=== PATIENT | male | born 1945 | race Caucasian/White ===

== ENCOUNTER 2024-12-03 12:58 | Emergency (ER) | payer OTHER, MEDICARE, MEDICAID ==
[~2024-12-03] VITALS: Ht 177.8 cm; Wt 68.9 kg
[2024-12-03] MEDS ORDERED: ASPIRIN81 MG PO (13:11)
[2024-12-03] MEDS ORDERED: ELIQUIS5 MG PO (13:12)
[2024-12-03 14:13] VITALS: BP 140/81
--- OUTSIDE RECORDS SUMMARY | 2024-12-03 14:22 | XMS ---
PreManage Notification: AYDEN HANKINS Security [place] [employer] Events No recent Security Events currently on file CRITERIA MET - 6 ED Visits in 6 Months - [facility] - 2 Visits in 30 Days CARE PROVIDERS Sirena Maritnez Community Health Worker 12/27/2022-Current PHONE: [phone] Leonides Samson Nurse Practitioner: Family Current PHONE: Unknown Dorothea has no Care Guidelines for this patient. Liza VISIT COUNT (12 MO.) [address] [place] [address] TOTAL 12 NOTE: Visits indicate total known visits. ED/UCC VISIT TRACKING (12 MO.) 12/03/2024 12:58 [facility] [place] TYPE: Emergency COMPLAINT: - ALTERED LOC 12/02/2024 23:27 [facility] [place] TYPE: Emergency DIAGNOSES: - Homelessness unspecified - Malingerer [conscious simulation] - Patient's other noncompliance with medication regimen for other reason - ABD PAIN 12/01/2024 21:03 [facility] [place] TYPE: Emergency DIAGNOSES: - Cellulitis of right finger - Homelessness unspecified - Patient's other noncompliance with medication regimen for other reason - KIDNEY PAIN 11[facility]30[facility]2024 17:[email or web address] DIAGNOSES: - Homelessness unspecified - Kidney transplant status - Neuralgia and neuritis, unspecified - Other chronic pain - Patient's other noncompliance with medication regimen for other reason - FOOT PROBLEM 11/27/2024 16:29 [facility] [place] TYPE: Emergency DIAGNOSES: - Kidney transplant status - Other stimulant abuse, uncomplicated - Patient's other noncompliance with medication regimen for other reason - BACK PAIN 11/23/2024 07:26 [facility] [place] TYPE: Emergency DIAGNOSES: - Encounter for other specified aftercare - HAND LACERATION 11/22/2024 16:45 [facility] [place] TYPE: Emergency DIAGNOSES: - Abrasion of unspecified finger, initial encounter - Nausea with vomiting, unspecified - Pain in left foot - Pain in right foot - hand pain 11/19/2024 07:32 [facility] [place] TYPE: Emergency DIAGNOSES: - Cellulitis of left finger - Cellulitis of unspecified part of limb - Cutaneous abscess of left hand - WOUND CHECK 11/18/2024 09:41 [facility] [place] TYPE: Emergency DIAGNOSES: - Cellulitis of right finger - Laceration without foreign body of lip, initial encounter - Unspecified injury of face, initial encounter - WOUND INFECTION 10/02/2024 13:27 [facility] [place] TYPE: Emergency DIAGNOSES: - Acute kidney failure, unspecified - Dehydration - WEAKNESS 08/24/2024 20:14 [facility] TYPE: Emergency COMPLAINT: - Constipation DIAGNOSES: - Lower abdominal pain, unspecified - Other constipation - Constipation 08/20/2024 17:04 [facility]: [facility] COMPLAINT: - coughing up blood, weakness DIAGNOSES: - Acute cough - Hemoptysis - Coughing Up Blood - coughing up blood, weakness INPATIENT VISIT TRACKING (12 MO.) No inpatient visits to display in this time frame [email or web address]
== END 2024-12-03 14:15 | disposition home or self-care (01) ==
LOC: ED 12:58
DX: M79.646 Pain in unspecified finger(s) (principal); Z59.00 Homelessness unspecified
CPT/HCPCS: 99283